=== PATIENT | male | born 1975 | race African-American/Black ===

== ENCOUNTER 2018-03-05 19:42 | Emergency (ER) | payer OTHER ==
[2018-03-05] MEDS: IPRATRPIUM/ALBUTEROL 0.5/2.5MG 3 ML NEBU. NEB (20:11)
== END 2018-03-05 20:37 | disposition home or self-care (01) ==
LOC: ER 20:37
DX: R05 Cough (principal); R09.81 Nasal congestion; R06.02 Shortness of breath; I10 Essential (primary) hypertension; J45.909 Unspecified asthma, uncomplicated
CPT/HCPCS: 94640; 99283-25; J7620

== ENCOUNTER 2018-06-23 23:00 | Emergency (ER) | payer SELFPAY, OTHER | END 2018-06-24 01:14 | disposition home or self-care (01) | LOC: ER 06-24 01:14 | DX: S16.1XXA Strain of muscle, fascia and tendon at neck level, initial encounter (principal); S39.012A Strain of muscle, fascia and tendon of lower back, initial encounter; J45.909 Unspecified asthma, uncomplicated; I10 Essential (primary) hypertension; Z90.89 Acquired absence of other organs; V49.9XXA Car occupant (driver) (passenger) injured in unspecified traffic accident, initial encounter; Y93.89 Activity, other specified; Y92.488 Other paved roadways as the place of occurrence of the external cause; Y99.8 Other external cause status | CPT/HCPCS: 72040; 99284 ==

== ENCOUNTER 2019-05-10 13:55 | Emergency (ER) | payer OTHER ==
[~2019-05-10] VITALS: Ht 182.9 cm; Wt 123.5 kg
[~2019-05-10 13:55] MED LIST: ALBU2.5V8 INH; BENZ100C PO; CETI10TA22 PO; CYCL10TA2 PO; HYDR-3164 PO
[2019-05-10] MEDS ORDERED: hydrALAZINE 20 MG/ML VIAL. IVP ONE ×2 (14:30→16:15)
[2019-05-10 14:39] LABS: BASO % 0 % (0-3); EOS # 0.2 x10^3/uL (0.0-0.7); EOS % 2 % (0-3); HEMATOCRIT 44.8 % (39.0-53.0); LYMPH # 1.1 x10^3/uL (1.0-4.8); LYMPH % 14 % (24-48); MEAN CORPUSCULAR HEMOGLOBIN 28 pg (25-35); MEAN CORPUSCULAR HGB CONC 33 g/dL (31-37); MEAN CORPUSCULAR VOLUME 83 fL (79-100); MONO # 0.6 x10^3/uL (0.0-1.1); MONO % 8 % (0-9); NEUT # 5.6 x10^3uL (1.8-7.7); NEUT % 75 % (31-73); PLATELET COUNT 164 x10^3/uL (140-400); RED BLOOD COUNT 5.41 x10^6/uL (4.30-5.70); WHITE BLOOD COUNT 7.5 x10^3/uL (4.0-11.0)
[2019-05-10 14:50] LABS: CALCIUM 8.5 mg/dL (8.5-10.1); CREATININE 1.6 mg/dL (0.7-1.3); GFR 57.4; POTASSIUM 4.3 mmol/L (3.5-5.1)
[2019-05-10 14:55] LABS: ALBUMIN 3.7 g/dL (3.4-5.0); TOTAL BILIRUBIN 0.6 mg/dL (0.2-1.0); TOTAL PROTEIN 7.4 g/dL (6.4-8.2)
--- NOTE | 2019-05-10 14:58 | RAD ---
Chest, PA and Lateral: Technique: PA and lateral views of the chest were obtained. History: Headache, elevated blood pressure. Comparison: None. Findings: The heart and pulmonary vasculature appear within normal limits. The lungs are clear. The pleural margins are clear. Impression: No acute chest process is seen. Electronically signed by: Armando Abbott MD (05/10/2019 2:55 PM) [id number]
[2019-05-10 15:13] LABS: BILIRUBIN,URINE NEGATIVE (NEG); CLARITY,URINE CLEAR; COLOR,URINE YELLOW; NITRITE,URINE NEGATIVE (NEG); PH,URINE 5.5; PROTEIN,URINE NEGATIVE (NEG-TRACE)
[2019-05-10] MEDS ORDERED: cloNIDine HCL 0.1 MG TABLET PO ONE (15:15)
[2019-05-10 15:20] LABS: BARBITURATES NEG (NEG); BENZODIAZEPINES NEG (NEG); CANNABINOIDS NEG (NEG); COCAINE NEG (NEG); METHADONE NEG (NEG); OPIATES NEG (NEG); PHENCYCLIDINE NEG (NEG)
[2019-05-10 15:21] LABS: AMPHETAMINE/METHAMPHETAMINE NEG (NEG)
--- NOTE | 2019-05-10 15:21 | EKG ---
[facility] [address] [place] [address] Test Date: 2019-05-10 Test Time: 14:24:47 Pat Name: KARI PATEL Department: Room: Gender: M [employer] Technician: : 1975 Requested By: LARON RM Order Number: [id number] Reading MD: Measurements Intervals [place] Rate: 73 P: 31 NE: 162 QRS: 29 QRSD: 84 T: -24 QT: 380 QTc: 422 Interpretive Statements SINUS RHYTHM LEFT ATRIAL ABNORMALITY ST & T ABNORMALITY, CONSIDER INFERIOR ISCHEMIA OR LEFT VENTRICULAR STRAIN ABNORMAL ECG No previous ECG available for comparison
[2019-05-10 15:31] LABS: BACTERIA,URINE 0 /HPF (0-FEW); WBC,URINE OCC /HPF (0-4)
--- NOTE | 2019-05-10 15:43 | RAD ---
CT HEAD WITHOUT CONTRAST 05/10/2019 2:28 PM Indication: Headache, hypertension Comparison: None Procedure: Multidetector CT imaging of the head was performed without the administration of contrast. Findings: There is no evidence of acute intracranial hemorrhage. There is no evidence of acute territorial infarction. Please note that CT is limited for evaluation of acute ischemia. No mass effect or midline shift is identified . The ventricles and basilar cisterns have an appropriate appearance. No abnormal extra-axial fluid collections are seen. No acute osseous changes are identified. Impression: No evidence of acute intracranial abnormality CT DOSING PQRS STATEMENT: One or more of the following individualized dose reduction techniques were utilized for this examination: 1. Automated exposure control 2. Adjustment of the mA and/or kV according to patient size 3. Use of iterative reconstruction technique Electronically signed by: Stan Penn MD (05/10/2019 3:39 PM) [id number]
--- NOTE | 2019-05-10 16:01 | PHYS DOC ---
Past Medical History Past Medical History: Asthma, Hypertension, Other Additional Past Medical Histor: headaches Past Surgical History: Appendectomy Alcohol Use: Rarely Drug Use: None Adult General Chief Complaint Chief Complaint: MULTIPLE COMPLAINTS HPI HPI Patient is a 44 year old male who presents with complaining of elevation of blood pressure. Patient states he has had history of elevation of blood pressure for one or 2 years and has prescription for medication but only takes his medication but gets occipital headache related to his high blood pressure. Patient states she had headache today and went to urgent care and had blood pressure of more than 200 and sent to ER for evaluation. Patient complaining of blurred vision and urinary frequency without chest pain, shortness of breath, focal neuro deficit, nausea vomiting, using drug or alcohol. Review of Systems Review of Systems Constitutional: Denies fever or chills [] Eyes: Denies change in visual acuity, redness, or eye pain [] HENT: Denies nasal congestion or sore throat [] Respiratory: Denies cough or shortness of breath [] Cardiovascular: No additional information not addressed in HPI [] GI: Denies abdominal pain, nausea, vomiting, bloody stools or diarrhea [] : Denies dysuria or hematuria [] Musculoskeletal: Denies back pain or joint pain [] Integument: Denies rash or skin lesions [] Neurologic: Reports headache, denies focal weakness or sensory changes [] Endocrine: Denies polyuria or polydipsia [] All other systems were reviewed and found to be within normal limits, except as documented in this note. Current Medications Current Medications Current Medications Medications (Trade) Dose Ordered Sig/Kentrell Start Time Stop Time Status Last Admin Dose Admin Clonidine HCl (Catapres) 0.2 mg 1X ONCE 05/10/19 15:15 05/10/19 15:16 DC 05/10/19 15:14 0.2 MG Hydralazine HCl (Apresoline Inj) 10 mg 1X ONCE 05/10/19 14:30 05/10/19 14:32 DC 05/10/19 14:45 10 MG Allergies Allergies Allergies Coded Allergies Type Severity Reaction Last Updated Verified No Known Drug Allergies 03/05/18 No Physical Exam Physical Exam Constitutional: Well developed, well nourished, no acute distress, non-toxic appearance. [] HENT: Normocephalic, atraumatic. Eyes: PERRLA, EOMI, conjunctiva normal, no discharge. [] Neck: Normal range of motion, no tenderness, supple, no stridor. [] Cardiovascular:Heart rate regular rhythm, no murmur [] Lungs & Thorax: Bilateral breath sounds clear to auscultation [] Abdomen: Bowel sounds normal, soft, no tenderness, no masses, no pulsatile masses. [] Skin: Warm, dry, no erythema, no rash. [] Back: No tenderness, no CVA tenderness. [] Extremities: No tenderness, no cyanosis, no clubbing, ROM intact, no edema. [] Neurologic: Alert and oriented X 3, normal motor function, normal sensory function, no focal deficits noted. [] Psychologic: Affect normal, judgement normal, mood normal. [] Current Patient Data Vital Signs Vital Signs Date Time Temp Pulse Resp B/P (MAP) Pulse Ox O2 Delivery O2 Flow Rate FiO2 05/10/19 15:23 89 16 206/100 (135) 99 Room Air 05/10/19 14:18 98.4 98.4 Lab Values Laboratory Tests Test 05/10/19 14:25 05/10/19 15:00 White Blood Count 7.5 x10^3/uL (4.0-11.0) Red Blood Count 5.41 x10^6/uL (4.30-5.70) Hemoglobin 15.0 g/dL (13.0-17.5) Hematocrit 44.8 % (39.0-53.0) Mean Corpuscular Volume 83 fL (79-100) Mean Corpuscular Hemoglobin 28 pg (25-35) Mean Corpuscular Hemoglobin Concent 33 g/dL (31-37) Red Cell Distribution Width 14.0 % (11.5-14.5) Platelet Count 164 x10^3/uL (140-400) Neutrophils (%) (Auto) 75 % (31-73) H Lymphocytes (%) (Auto) 14 % (24-48) L Monocytes (%) (Auto) 8 % (0-9) Eosinophils (%) (Auto) 2 % (0-3) Basophils (%) (Auto) 0 % (0-3) Neutrophils # (Auto) 5.6 x10^3uL (1.8-7.7) Lymphocytes # (Auto) 1.1 x10^3/uL (1.0-4.8) Monocytes # (Auto) 0.6 x10^3/uL (0.0-1.1) Eosinophils # (Auto) 0.2 x10^3/uL (0.0-0.7) Basophils # (Auto) 0.0 x10^3/uL (0.0-0.2) Sodium Level 141 mmol/L (136-145) Potassium Level 4.3 mmol/L (3.5-5.1) Chloride Level 106 mmol/L (98-107) Carbon Dioxide Level 26 mmol/L (21-32) Anion Gap 9 (6-14) Blood Urea Nitrogen 13 mg/dL (8-26) Creatinine 1.6 mg/dL (0.7-1.3) H Estimated GFR (Cockcroft-Gault) 57.4 BUN/Creatinine Ratio 8 (6-20) Glucose Level 108 mg/dL (70-99) H Calcium Level 8.5 mg/dL (8.5-10.1) Magnesium Level 2.0 mg/dL (1.8-2.4) Total Bilirubin 0.6 mg/dL (0.2-1.0) Aspartate Amino Transferase (AST) 26 U/L (15-37) Alanine Aminotransferase (ALT) 28 U/L (16-63) Alkaline Phosphatase 105 U/L (46-116) Creatine Kinase 285 U/L (39-308) Troponin I Quantitative < 0.017 ng/mL (0.000-0.055) [id number]-Gdj-[id number]-Type Natriuretic Peptide 379 pg/mL (0-124) H Total Protein 7.4 g/dL (6.4-8.2) Albumin 3.7 g/dL (3.4-5.0) Albumin/Globulin Ratio 1.0 (1.0-1.7) Urine Collection Type Unknown Urine Color Yellow Urine Clarity Clear Urine pH 5.5 Urine Specific [place] 1.020 Urine Protein Negative mg/dL (NEG-TRACE) Urine Glucose (UA) Negative mg/dL (NEG) Urine Ketones (Stick) Negative mg/dL (NEG) Urine Blood Negative (NEG) Urine Nitrite Negative (NEG) Urine Bilirubin Negative (NEG) Urine Urobilinogen Dipstick 1.0 mg/dL (0.2 mg/dL) Urine Leukocyte Esterase Negative (NEG) Urine RBC 1-2 /HPF (0-2) Urine WBC Occ /HPF (0-4) Urine Bacteria 0 /HPF (0-FEW) Urine Mucus Mod /LPF Urine Opiates Screen Neg (NEG) Urine Methadone Screen Neg (NEG) Urine Barbiturates Neg (NEG) Urine Phencyclidine Screen Neg (NEG) Urine Amphetamine/Methamphetamine Neg (NEG) Urine Benzodiazepines Screen Neg (NEG) Urine Cocaine Screen Neg (NEG) Urine Cannabinoids Screen Neg (NEG) Urine Ethyl Alcohol Neg (NEG) Laboratory Tests 05/10/19 14:25 Laboratory Tests 05/10/19 14:25 EKG EKG EKG interpreted by me. EKG at 1424 showed normal sinus rhythm at rate of 74, left atrial abnormalities, abnormal T-wave inversion in inferior leads, no acute distress and T-wave abnormalities. Radiology/Procedures Radiology/Procedures [][address] [address] IMAGING REPORT Signed PATIENT: KARI PATEL ACCOUNT: [id number] : 1975 LOCATION: ER AGE: 44 SEX: M EXAM STATUS: REG ER ORD. PHYSICIAN: LARON RM MD REASON: headache and elevation of blood pressure PROCEDURE: CHEST PA & LATERAL Chest, PA and Lateral: Technique: PA and lateral views of the chest were obtained. History: Headache, elevated blood pressure. Comparison: None. Findings: The heart and pulmonary vasculature appear within normal limits. The lungs are clear. The pleural margins are clear. Impression: No acute chest process is seen. Electronically signed by: Armando Abbott MD (05/10/2019 2:55 PM) [id number] DICTATED and SIGNED BY: ARMANDO ABBOTT MD DATE: 05/10/[address] [id number] IMAGING REPORT Signed PATIENT: KARI PATEL ACCOUNT: [id number] : 1975 LOCATION: ER AGE: 44 SEX: M EXAM STATUS: REG ER ORD. PHYSICIAN: LARON RM MD REASON: headache and elevation of blood pressure PROCEDURE: CT HEAD WO CONTRAST CT HEAD WITHOUT CONTRAST 05/10/2019 2:28 PM Indication: Headache, hypertension Comparison: None Procedure: Multidetector CT imaging of the head was performed without the administration of contrast. Findings: There is no evidence of acute intracranial hemorrhage. There is no evidence of acute territorial infarction. Please note that CT is limited for evaluation of acute ischemia. No mass effect or midline shift is identified . The ventricles and basilar cisterns have an appropriate appearance. No abnormal extra-axial fluid collections are seen. No acute osseous changes are identified. Impression: No evidence of acute intracranial abnormality CT DOSING PQRS STATEMENT: One or more of the following individualized dose reduction techniques were utilized for this examination: 1. Automated exposure control 2. Adjustment of the mA and/or kV according to patient size 3. Use of iterative reconstruction technique Electronically signed by: Stan Schultz MD (05/10/2019 3:39 PM) [id number] DICTATED and SIGNED BY: STAN SCHULTZ MD DATE: 05/10/19 1539 Course & Med Decision Making Course & Med Decision Making Pertinent Labs and Imaging studies reviewed. (See chart for details) Evaluation of patient in ER showed 44-year-old male patient with history of hypertension without taking his medication on regular basis and presented here from urgent care because of elevation of blood pressure. Patient had blood sugar of 225 with sitting change of EKG. Patient did not have chest pain or abnormal labs except for mild elevation of creatinine. Patient treated with hydralazine and clonidine and blood pressure gradually decreased. Patient had blood pressure medication at home but doesn't know the name of his medication. Patient was advised to take his medication and follow up with primary care physician on regular basis. discharge: I've spoken with the patient and/or caregivers. I've explained the patient's condition, diagnosis and treatment plan based on information available to me at this time. I've answered the patient's and/or caregivers questions and addressed any concerns. The patient and/or caregivers have a good understanding the patient's diagnosis, condition and treatment plan as can be expected at this point. Vital signs have been stabilized. The patient's condition is stable for discharge from the emergency department. The patient will pursue further outpatient evaluation with her primary care provider or other designated consulting physician as outlined in the discharge instructions. Patient and/or caregivers are agreeable to this plan of care and follow-up instructions have been explained in detail. The patient and/or caregivers have received these instructions in written format and expressed understanding of these discharge instructions. The patient and her caregivers are aware that if any significant change in condition or worsening of symptoms should prompt him to immediately return to this of the closest emergency department. If an emergent department is not readily available I would encourage him to call 911. Jarret Disclaimer Dragon Disclaimer This electronic medical record was generated, in whole or in part, using a voice recognition dictation system. Departure Departure Impression: Primary Impression: Hypertensive urgency Additional Impressions: Renal insufficiency Headache Non-compliance Disposition: HOME, SELF-CARE (@1600) Condition: IMPROVED Referrals: UNKNOWN PCP NAME (PCP) Patient Instructions: Form - Blood Pressure Record Sheet, How to Take Your Blood Pressure, [id number], Managing Your High Blood Pressure Additional Instructions: Take your blood pressure medication every day as advised Follow-up with your primary care physician in 3-5 days Return to ER if not getting better Problem Qualifiers Additional Impressions: Headache Headache type: unspecified Headache chronicity pattern: unspecified pattern Intractability: not intractable Qualified Codes: R51 - Headache LARON RM MD May 10, 2019 16:01
[2019-05-10 16:39] VITALS: BP 171/91
== END 2019-05-10 16:49 | disposition home or self-care (01) ==
LOC: ER 13:55
DX: I16.0 Hypertensive urgency (principal); R51 Headache; N28.9 Disorder of kidney and ureter, unspecified; Z91.19 Patient's noncompliance with other medical treatment and regimen; I10 Essential (primary) hypertension; J45.909 Unspecified asthma, uncomplicated; Z90.89 Acquired absence of other organs
CPT/HCPCS: 36415; 70450; 71046; 80053; 80307; 81001; 82550; 83735; 83880; 84484; 85025; 93005; 96374; 96376; 99285; J0360

== ENCOUNTER 2019-12-20 17:00 | Emergency (ER) | payer SELFPAY ==
[~2019-12-20] VITALS: Ht 182.9 cm; Wt 125.0 kg
[~2019-12-20 17:00] MED LIST changes: -CETI10TA22 PO; +CETI10TA24 PO
[2019-12-20] MEDS ORDERED: cloNIDine HCL 0.1 MG TABLET PO ONE (17:45)
[2019-12-20] MEDS ORDERED: LABETALOL 20 MG/4 ML DISP.SYRIN. IVP ONE (17:45)
[2019-12-20] MEDS ORDERED: IV NORMAL SALINE 1000ML BAG 1,000 ML IV ONE (17:45)
[2019-12-20] MEDS ORDERED: ASPIRIN 325 MG TABLET PO ONE (17:45)
[2019-12-20 18:00] LABS: BASO % 0 % (0-3); EOS # 0.1 x10^3/uL (0.0-0.7); EOS % 1 % (0-3); HEMATOCRIT 48.5 % (39.0-53.0); LYMPH # 0.8 x10^3/uL (1.0-4.8); LYMPH % 8 % (24-48); MEAN CORPUSCULAR HEMOGLOBIN 27 pg (25-35); MEAN CORPUSCULAR HGB CONC 33 g/dL (31-37); MEAN CORPUSCULAR VOLUME 83 fL (79-100); MONO # 0.6 x10^3/uL (0.0-1.1); MONO % 6 % (0-9); NEUT # 8.4 x10^3/uL (1.8-7.7); NEUT % 85 % (31-73); PLATELET COUNT 164 x10^3/uL (140-400); RED BLOOD COUNT 5.86 x10^6/uL (4.30-5.70); RED CELL DISTRIBUTION WIDTH 13.9 % (11.5-14.5); WHITE BLOOD COUNT 9.9 x10^3/uL (4.0-11.0)
[2019-12-20 18:11] LABS: CREATININE 1.6 mg/dL (0.7-1.3); GFR 57.4; POTASSIUM 3.8 mmol/L (3.5-5.1)
[2019-12-20 18:17] LABS: ALBUMIN 4.2 g/dL (3.4-5.0); ALBUMIN/GLOBULIN RATIO 1.1 (1.0-1.7); MAGNESIUM 1.9 mg/dL (1.8-2.4); TOTAL BILIRUBIN 0.8 mg/dL (0.2-1.0); TOTAL PROTEIN 8.1 g/dL (6.4-8.2)
--- NOTE | 2019-12-20 18:36 | RAD ---
CT scan of the head without contrast 12/20/2019 Clinical History: Numbness. Hypertension. Technique: Unenhanced, contiguous, 5 mm axial sections were obtained through the head. One or more of the following individualized dose reduction techniques were utilized for this study: 1. Automated exposure control. 2. Adjustment of the mA and/or kV according to patient size. 3. Use of iterative reconstruction technique. Findings: The ventricles and sulci are within normal limits in size and configuration. No focal area of abnormal attenuation is seen involving the brain parenchyma. No extra-axial fluid collection is seen. No skull fracture is seen. Impression: Negative study. Electronically signed by: Bk Razo MD (12/20/2019 6:33 PM) [id number]
[2019-12-20 19:13] LABS: BILIRUBIN,URINE NEGATIVE (NEG); CLARITY,URINE CLEAR; COLOR,URINE YELLOW; NITRITE,URINE NEGATIVE (NEG); PROTEIN,URINE NEGATIVE (NEG-TRACE)
[2019-12-20 19:21] LABS: AMPHETAMINE/METHAMPHETAMINE NEG (NEG); BARBITURATES NEG (NEG); BENZODIAZEPINES NEG (NEG); CANNABINOIDS NEG (NEG); COCAINE NEG (NEG); METHADONE NEG (NEG); OPIATES NEG (NEG); PHENCYCLIDINE NEG (NEG)
[2019-12-20 19:24] LABS: BACTERIA,URINE 0 /HPF (0-FEW); RBC,URINE OCC /HPF (0-2); SQUAMOUS EPITHELIAL CELL,UR OCC /LPF; WBC,URINE 0 /HPF (0-4)
[2019-12-20] MEDS ORDERED: hydrALAZINE 20 MG/ML VIAL. IVP ONE (20:00)
--- NOTE | 2019-12-20 20:22 | RAD ---
EXAM: AP View of the chest DATE: 12/20/2019 5:42 PM INDICATION: HTN, numbness COMPARISON: 05/10/2019 FINDINGS: The heart is not enlarged. Mediastinal and hilar contours are normal. No focal parenchymal airspace opacity. No pleural effusion or pneumothorax. IMPRESSION: 1. No radiographic evidence for acute cardiopulmonary process. Electronically signed by: Robert Parks MD (12/20/2019 8:19 PM) [id number]
--- NOTE | 2019-12-20 21:43 | PHYS DOC ---
Past Medical History Past Medical History: Asthma, Hypertension, Other Additional Past Medical Histor: headaches (JOHN CESPEDES APRN) Past Surgical History: Appendectomy (JOHN CESPEDES APRN) Smoking Status: Never Smoker Alcohol Use: Rarely Drug Use: None (JOHN CESPEDES APRN) Attending Signature I have participated in the care of this patient and I have reviewed and agree with all pertinent clinical information above including history, exam, and recommendations. (CLIFF WORRELL MD) Adult General Chief Complaint Chief Complaint: HEADACHE HPI HPI Patient is a 44 year old male patient with history of hypertension mostly uncontrolled,and asthma who presents to the ED today complaining of a 7 out of 10 posterior head pain, symptoms have been going on for one week. Patient denies any chest pain, shortness of breath. He reports he is supposed to be on lisinopril/HCTZ which he did not take for one week. He reports before coming to the ED his blood pressure was 200/113. He reports he felt his right hand was numb and his left leg was numb too when he noted his blood pressure was high. 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 He reports he has not seen his PCP for a while because his insurance changed. He states he got the prescription for his blood pressure medicine yesterday and took today's dose. (JOHN CESPEDES APRN) Review of Systems Review of Systems Constitutional: Denies fever or chills [] Eyes: Denies change in visual acuity, redness, or eye pain [] HENT: Denies nasal congestion or sore throat [] Respiratory: Denies cough or shortness of breath [] Cardiovascular: Reports HTN. No additional information not addressed in HPI [] GI: Denies abdominal pain, nausea, vomiting, bloody stools or diarrhea [] : Denies dysuria or hematuria [] Musculoskeletal: Denies back pain or joint pain [] Integument: Denies rash or skin lesions [] Neurologic: reports posterior headache, right hand numbness and left leg numb ness denies focal weakness or sensory changes [] All other systems were reviewed and found to be within normal limits, except as documented in this note. (JOHN CESPEDES APRN) Current Medications Current Medications Current Medications Medications (Trade) Dose Ordered Sig/Kentrell Start Time Stop Time Status Last Admin Dose Admin Aspirin (Jose Eduardo Aspirin) 325 mg 1X ONCE 2/6/20 17:45 12/20/19 17:47 DC 12/20/19 18:20 325 MG Clonidine HCl (Catapres) 0.1 mg 1X ONCE 12/20/19 17:45 12/20/19 17:47 DC 12/20/19 18:20 0.1 MG Hydralazine HCl (Apresoline Inj) 10 mg 1X ONCE 12/20/19 20:00 12/20/19 20:01 DC 12/20/19 19:55 10 MG Labetalol HCl (Normodyne Iv Push) 10 mg 1X ONCE 12/20/19 17:45 12/20/19 17:47 DC 12/20/19 18:20 10 MG Sodium Chloride 1,000 ml @ 1,000 mls/hr 1X ONCE 12/20/19 17:45 12/20/19 18:44 DC 12/20/19 18:19 1,000 MLS/HR (CLIFF WORRELL MD) Allergies Allergies Allergies Coded Allergies Type Severity Reaction Last Updated Verified No Known Drug Allergies 03/05/18 No (CLIFF WORRELL MD) Physical Exam Physical Exam Constitutional: Well developed, well nourished, no acute distress, non-toxic appearance. [] HENT: Normocephalic, atraumatic, bilateral external ears normal, oropharynx moist, no oral exudates, nose normal. [] Eyes: PERRLA, EOMI, conjunctiva normal, no discharge. [] Neck: Normal range of motion, no tenderness, supple, no stridor. [] Cardiovascular:Heart rate regular rhythm, no murmur [] Lungs & Thorax: Bilateral breath sounds clear to auscultation [] Abdomen: Bowel sounds normal, soft, no tenderness, no masses, no pulsatile masses. [] Skin: Warm, dry, no erythema, no rash. [] Back: No tenderness, no CVA tenderness. [] Extremities: No tenderness, no cyanosis, no clubbing, ROM intact, no edema. [] Neurologic: Alert and oriented X 3, normal motor function, normal sensory function, no focal deficits noted. Cranial nerves II-XII intact. Psychologic: Affect normal, judgement normal, mood normal. [] (JOHN CESPEDES APRN) Current Patient Data Vital Signs Vital Signs Date Time Temp Pulse Resp B/P (MAP) Pulse Ox O2 Delivery O2 Flow Rate FiO2 12/20/19 21:54 76 18 98 12/20/19 19:55 202/116 12/20/19 17:10 98.2 98.2 (CLIFF WORRELL MD) Lab Values Laboratory Tests Test 12/20/19 17:20 12/20/19 19:03 White Blood Count 9.9 x10^3/uL (4.0-11.0) Red Blood Count 5.86 x10^6/uL (4.30-5.70) H Hemoglobin 16.0 g/dL (13.0-17.5) Hematocrit 48.5 % (39.0-53.0) Mean Corpuscular Volume 83 fL (79-100) Mean Corpuscular Hemoglobin 27 pg (25-35) Mean Corpuscular Hemoglobin Concent 33 g/dL (31-37) Red Cell Distribution Width 13.9 % (11.5-14.5) Platelet Count 164 x10^3/uL (140-400) Neutrophils (%) (Auto) 85 % (31-73) H Lymphocytes (%) (Auto) 8 % (24-48) L Monocytes (%) (Auto) 6 % (0-9) Eosinophils (%) (Auto) 1 % (0-3) Basophils (%) (Auto) 0 % (0-3) Neutrophils # (Auto) 8.4 x10^3/uL (1.8-7.7) H Lymphocytes # (Auto) 0.8 x10^3/uL (1.0-4.8) L Monocytes # (Auto) 0.6 x10^3/uL (0.0-1.1) Eosinophils # (Auto) 0.1 x10^3/uL (0.0-0.7) Basophils # (Auto) 0.0 x10^3/uL (0.0-0.2) Sodium Level 141 mmol/L (136-145) Potassium Level 3.8 mmol/L (3.5-5.1) Chloride Level 101 mmol/L (98-107) Carbon Dioxide Level 29 mmol/L (21-32) Anion Gap 11 (6-14) Blood Urea Nitrogen 11 mg/dL (8-26) Creatinine 1.6 mg/dL (0.7-1.3) H Estimated GFR (Cockcroft-Gault) 57.4 BUN/Creatinine Ratio 7 (6-20) Glucose Level 102 mg/dL (70-99) H Calcium Level 9.0 mg/dL (8.5-10.1) Magnesium Level 1.9 mg/dL (1.8-2.4) Total Bilirubin 0.8 mg/dL (0.2-1.0) Aspartate Amino Transferase (AST) 31 U/L (15-37) Alanine Aminotransferase (ALT) 35 U/L (16-63) Alkaline Phosphatase 114 U/L (46-116) Creatine Kinase 279 U/L (39-308) Creatine Kinase MB (Mass) 2.2 ng/mL (0.0-3.6) Creatine Kinase MB Relative Index 0.8 % (0-4) Troponin I Quantitative < 0.017 ng/mL (0.000-0.055) SD-Syx-E-Type Natriuretic Peptide 591 pg/mL (0-124) H Total Protein 8.1 g/dL (6.4-8.2) Albumin 4.2 g/dL (3.4-5.0) Albumin/Globulin Ratio 1.1 (1.0-1.7) Thyroid Stimulating Hormone (TSH) 0.702 uIU/mL (0.358-3.74) Urine Collection Type Unknown Urine Color Yellow Urine Clarity Clear Urine pH 6.0 Urine Specific [place] 1.010 Urine Protein Negative mg/dL (NEG-TRACE) Urine Glucose (UA) Negative mg/dL (NEG) Urine Ketones (Stick) Negative mg/dL (NEG) Urine Blood Negative (NEG) Urine Nitrite Negative (NEG) Urine Bilirubin Negative (NEG) Urine Urobilinogen Dipstick 1.0 mg/dL (0.2 mg/dL) Urine Leukocyte Esterase Negative (NEG) Urine RBC Occ /HPF (0-2) Urine WBC 0 /HPF (0-4) Urine Squamous Epithelial Cells Occ /LPF Urine Bacteria 0 /HPF (0-FEW) Urine Opiates Screen Neg (NEG) Urine Methadone Screen Neg (NEG) Urine Barbiturates Neg (NEG) Urine Phencyclidine Screen Neg (NEG) Urine Amphetamine/Methamphetamine Neg (NEG) Urine Benzodiazepines Screen Neg (NEG) Urine Cocaine Screen Neg (NEG) Urine Cannabinoids Screen Neg (NEG) Urine Ethyl Alcohol Neg (NEG) Laboratory Tests 12/20/19 17:20 Laboratory Tests 12/20/19 17:20 (CLIFF WORRELL MD) EKG EKG [] (JOHN CESPEDES APRN) Radiology/Procedures Radiology/Procedures []PROCEDURE: PORTABLE CHEST 1V EXAM: AP View of the chest DATE: 12/20/2019 5:42 PM INDICATION: HTN, numbness COMPARISON: 05/10/2019 FINDINGS: The heart is not enlarged. Mediastinal and hilar contours are normal. No focal parenchymal airspace opacity. No pleural effusion or pneumothorax. IMPRESSION: 1. No radiographic evidence for acute cardiopulmonary process. Electronically signed by: Robert Garza MD (12/20/2019 8:19 PM) [id number] DICTATED and SIGNED BY: ROBERT GARZA MD DATE: 12/20/192018 PROCEDURE: CT HEAD WO CONTRAST CT scan of the head without contrast 12/20/2019 Clinical History: Numbness. Hypertension. Technique: Unenhanced, contiguous, 5 mm axial sections were obtained through the head. One or more of the following individualized dose reduction techniques were utilized for this study: 1. Automated exposure control. 2. Adjustment of the mA and/or kV according to patient size. 3. Use of iterative reconstruction technique. Findings: The ventricles and sulci are within normal limits in size and configuration. No focal area of abnormal attenuation is seen involving the brain parenchyma. No extra-axial fluid collection is seen. No skull fracture is seen. Impression: Negative study. Electronically signed by: Bk Razo MD (12/20/2019 6:33 PM) [id number] DICTATED and SIGNED BY: BK RAZO MD DATE: 12/20/19 183 (JOHN CESPEDES APRN) Course & Med Decision Making Course & Med Decision Making Pertinent Labs and Imaging studies reviewed. (See chart for details) This is a 44-year-old male patient presenting to the ED today complaining of headache, elevated blood pressure, numbness to the right hand and left leg. Headache has been going on for week, patient has not been taking his blood pressure medicine for one week. He ran out of the medications though he states has not seen his PCP for a while. EKG was negative, chest x-ray is negative, CT of the head is negative, stroke scale is negative. CMP with creatinine of 1.6 BUN, Creatinine around his baseline. Blood pressure notable to the ED 209/128on arrival to the ED, patient was given labetalol, clonidine then later hydralazine, blood pressure finally came down to 160/100. Headache has resolved. He has no numbness. This patient is noncompliant with his blood pressure regimen. Neither does he follow up with the PCP. He couldn't even remember the name of his own doctor. I talked to patient and significant other at length about compliance with high blood pressure treatment. I requested he contacts his PCP tomorrow and starts following up. He states he has hydrochlorothiazide and lisinopril at home. Reminded patient the importance of taking this medications daily as prescribed. We talked about lifestyle changes especially weight loss, diet and exercise. (JOHN CESPEDES APRN) Dragon Disclaimer Dragon Disclaimer This electronic medical record was generated, in whole or in part, using a voice recognition dictation system. (JOHN CESPEDES APRN) NIHSS Stroke Scale NIH Stroke Scale: NIH Stroke Scale Response (Comments) Value Level of Consciousness: 0 Alert/Responsive 0 LOC Questions: 0 Answers both correctly 0 Best Gaze: 0 Normal 0 Visual: 0 No visual loss 0 Facial Palsy: 0 Normal, symmetrical 0 Motor - Left Arm 0 No drift 0 Motor - Right Arm 0 No drift 0 Motor - Left Leg 0 No drift 0 Motor: Right Leg 0 No drift 0 Limb Ataxia: 0 Absent 0 Sensory: 0 No loss 0 Best Language: 0 Normal 0 Dysathria: 0 Normal 0 Extinction and Inattention: 0 Normal 0 Total 0 Departure Departure Impression: Primary Impression: HTN (hypertension) Additional Impressions: Chronic renal insufficiency Headache Stress Disposition: HOME, SELF-CARE Condition: STABLE Referrals: UNKNOWN PCP NAME (PCP) follow up with your doctor in 1-2 days Patient Instructions: Hypertension Additional Instructions: You have high blood pressure. Please ensure you are taking your medicines and follow up with your doctor as soon as you can. Problem Qualifiers Primary Impression: HTN (hypertension) Hypertension type: unspecified Qualified Codes: I10 - Essential (primary) hypertension Additional Impressions: Chronic renal insufficiency Chronic kidney disease stage: unspecified stage Qualified Codes: N18.9 - Chronic kidney disease, unspecified Headache Headache type: unspecified Headache chronicity pattern: acute headache Intractability: not intractable Qualified Codes: R51 - Headache JOHN CESPEDES APRN Dec 20, 2019 21:43 CLIFF WORRELL MD Dec 21, 2019 02:57
[2019-12-20 21:54] VITALS: BP 164/102
--- NOTE | 2019-12-21 06:00 | EKG ---
[facility] [address] [place] [address] Test Date: 2019-12-20 Test Time: 17:18:49 Pat Name: KARI PATEL Department: Room: Gender: M Delivery Rn: : 1975 Requested By: JOHN CESPEDES Order Number: [id number] Reading MD: Measurements Intervals [place] Rate: 85 P: 35 W[place]: 126 QRS: 28 QRSD: 86 T: -18 QT: 366 QTc: 441 Interpretive Statements SINUS RHYTHM LEFT ATRIAL ABNORMALITY QRS(T) CONTOUR ABNORMALITY CONSIDER ANTEROLATERAL MYOCARDIAL DAMAGE T ABNORMALITY IN INFERIOR LEADS ABNORMAL ECG RI6.01 No previous ECG available for comparison
== END 2019-12-20 22:16 | disposition home or self-care (01) ==
LOC: ER 17:00
DX: I10 Essential (primary) hypertension (principal); I12.9 Hypertensive chronic kidney disease with stage 1 through stage 4 chronic kidney disease, or unspecified chronic kidney disease; N18.9 Chronic kidney disease, unspecified; R51 Headache; F43.9 Reaction to severe stress, unspecified; J45.909 Unspecified asthma, uncomplicated; Z90.89 Acquired absence of other organs; Z79.82 Long term (current) use of aspirin
CPT/HCPCS: 36415; 70450; 71045; 80053; 80307; 81001; 82553; 83735; 83880; 84443; 84484; 85025; 93005; 96374; 96375; 99285; J0360; J3490; J7030

== ENCOUNTER 2019-12-25 08:09 | Emergency (ER) | payer SELFPAY ==
[~2019-12-25] VITALS: Ht 182.9 cm; Wt 123.0 kg
--- NOTE | 2019-12-25 09:46 | EKG ---
[facility] [address] [place] [address] Test Date: 2019-12-25 Test Time: 08:57:20 Pat Name: KARI PATEL Department: Room: Gender: M Pharmacy Tech: : 1975 Requested By: LARON RM Order Number: [id number] Reading MD: Measurements Intervals [place] Rate: 67 P: 40 NE: 134 QRS: 28 QRSD: 92 T: -35 QT: 438 QTc: 466 Interpretive Statements SINUS RHYTHM LEFT ATRIAL ABNORMALITY T ABNORMALITY IN ANTERIOR LEADS INFEROLATERAL LEADS ABNORMAL ECG RI6.01 No previous ECG available for comparison
--- NOTE | 2019-12-25 09:55 | RAD ---
Examination: CT HEAD WO CONTRAST History: Dizziness Comparison/Correlation: 05/10/2019 CT head without contrast, 12/20/2019 CT head without contrast Findings: Axial images were obtained without contrast. Ventricles are normal size. No intracranial hemorrhage, shift, or mass effect. Anterior limb of the right internal capsule has low attenuation similar to the prior exams. This may represent an old lacunar infarct. Bony structures unremarkable. Orbits are unremarkable. Impression: No suspicious process. PQRS Compliance Statement: One or more of the following individualized dose reduction techniques were utilized for this examination: 1. Automated exposure control 2. Adjustment of the mA and/or kV according to patient size 3. Use of iterative reconstruction technique Electronically signed by: Tolu Sung MD (12/25/2019 9:52 AM) [id number]
--- NOTE | 2019-12-25 09:58 | RAD ---
Examination: PORTABLE CHEST 1V History: Dizziness Comparison/Correlation: 12/20/2023 Portable Chest X-ray Exam Findings: Portable upright frontal view chest was obtained. Heart size is borderline but this is probably technique related. No infiltrate or pleural effusion. No pneumothorax. Bony structures unremarkable. Impression: No acute process. Electronically signed by: Tolu Sung MD (12/25/2019 9:55 AM) [id number]
[2019-12-25 10:05] LABS: CALCIUM 8.7 mg/dL (8.5-10.1); CREATININE 1.5 mg/dL (0.7-1.3); GFR 61.8
[2019-12-25] MEDS: MECLIZINE HCL 12.5 MG TABLET. PO ONE (10:08)
[2019-12-25 10:12] LABS: ALBUMIN 3.8 g/dL (3.4-5.0); ALBUMIN/GLOBULIN RATIO 1.1 (1.0-1.7); MAGNESIUM 2.1 mg/dL (1.8-2.4); TOTAL BILIRUBIN 0.6 mg/dL (0.2-1.0); TOTAL PROTEIN 7.2 g/dL (6.4-8.2)
[2019-12-25 10:14] LABS: BASO % 0 % (0-3); EOS # 0.1 x10^3/uL (0.0-0.7); EOS % 1 % (0-3); HEMATOCRIT 45.4 % (39.0-53.0); HEMOGLOBIN 14.8 g/dL (13.0-17.5); LYMPH # 0.7 x10^3/uL (1.0-4.8); LYMPH % 8 % (24-48); MEAN CORPUSCULAR HEMOGLOBIN 27 pg (25-35); MEAN CORPUSCULAR HGB CONC 33 g/dL (31-37); MEAN CORPUSCULAR VOLUME 83 fL (79-100); MONO # 0.6 x10^3/uL (0.0-1.1); MONO % 6 % (0-9); NEUT % 84 % (31-73); PLATELET COUNT 147 x10^3/uL (140-400); RED BLOOD COUNT 5.44 x10^6/uL (4.30-5.70); RED CELL DISTRIBUTION WIDTH 13.7 % (11.5-14.5); WHITE BLOOD COUNT 9.5 x10^3/uL (4.0-11.0)
[2019-12-25 10:29] LABS: PROTHROMBIN TIME PATIENT 14.5 SEC (11.7-14.0)
--- NOTE | 2019-12-25 10:36 | PHYS DOC ---
Past Medical History Past Medical History: Asthma, Hypertension, Other Additional Past Medical Histor: headaches Past Surgical History: Appendectomy Smoking Status: Never Smoker Alcohol Use: Rarely Drug Use: None Adult General Chief Complaint Chief Complaint: DIZZY/LIGHT HEADED HPI HPI Patient is a 44 year old male with history of hypertension and asthma and headache who presents with headache of dizziness. Patient states he had episodes of positional dizziness since this morning associated with left hand numbness and substernal headache and rated his pain 5/10. Patient states he had 4 episodes of vomiting. Patient denies ataxia, chest pain, shortness of breath, fever and chills, focal weakness, history of the same problem. Patient has history of hypertension and denies missing his medication. Patient complaining of lower abdominal discomfort feeling for the last couple days and thinks maybe he has UTI. Patient denies constipation and diarrhea, hematuria. Review of Systems Review of Systems Constitutional: Denies fever or chills [] Eyes: Denies change in visual acuity, redness, or eye pain [] HENT: Denies nasal congestion or sore throat [] Respiratory: Denies cough or shortness of breath [] Cardiovascular: No additional information not addressed in HPI [] GI: Reports abdominal pain, nausea, vomiting, denies bloody stools or diarrhea [] : Denies dysuria or hematuria [] Musculoskeletal: Denies back pain or joint pain [] Integument: Denies rash or skin lesions [] Neurologic: Reports headache, sensory changes, denies focal weakness [] Endocrine: Denies polyuria or polydipsia [] All other systems were reviewed and found to be within normal limits, except as documented in this note. Current Medications Current Medications Current Medications Medications (Trade) Dose Ordered Sig/Kentrell Start Time Stop Time Status Last Admin Dose Admin Meclizine HCl (Antivert) 25 mg 1X ONCE 12/25/19 09:45 12/25/19 09:46 DC 12/25/19 10:08 25 MG Allergies Allergies Allergies Coded Allergies Type Severity Reaction Last Updated Verified No Known Drug Allergies 03/05/18 No Physical Exam Physical Exam Constitutional: Well developed, well nourished, no acute distress, non-toxic appearance. [] HENT: Normocephalic, atraumatic, bilateral external ears normal, oropharynx moist, no oral exudates, nose normal. [] Eyes: PERRLA, EOMI, conjunctiva normal, no discharge. [] Neck: Normal range of motion, no tenderness, supple, no stridor. [] Cardiovascular:Heart rate regular rhythm, no murmur [] Lungs & Thorax: Bilateral breath sounds clear to auscultation [] Abdomen: Bowel sounds normal, soft, no tenderness, no masses, no pulsatile masses. [] Skin: Warm, dry, no erythema, no rash. [] Back: No tenderness, no CVA tenderness. [] Extremities: No tenderness, no cyanosis, no clubbing, ROM intact, no edema. [] Neurologic: Alert and oriented X 3, normal motor function, normal sensory function, no focal deficits noted. [] Psychologic: Affect normal, judgement normal, mood normal. [] Current Patient Data Vital Signs Vital Signs Date Time Temp Pulse Resp B/P (MAP) Pulse Ox O2 Delivery O2 Flow Rate FiO2 12/25/19 13:00 76 18 97 12/25/19 08:27 98.2 175/106 (129) Room Air 98.2 Lab Values Laboratory Tests Test 12/25/19 09:10 12/25/19 11:00 White Blood Count 9.5 x10^3/uL (4.0-11.0) Red Blood Count 5.44 x10^6/uL (4.30-5.70) Hemoglobin 14.8 g/dL (13.0-17.5) Hematocrit 45.4 % (39.0-53.0) Mean Corpuscular Volume 83 fL (79-100) Mean Corpuscular Hemoglobin 27 pg (25-35) Mean Corpuscular Hemoglobin Concent 33 g/dL (31-37) Red Cell Distribution Width 13.7 % (11.5-14.5) Platelet Count 147 x10^3/uL (140-400) Neutrophils (%) (Auto) 84 % (31-73) H Lymphocytes (%) (Auto) 8 % (24-48) L Monocytes (%) (Auto) 6 % (0-9) Eosinophils (%) (Auto) 1 % (0-3) Basophils (%) (Auto) 0 % (0-3) Neutrophils # (Auto) 8.0 x10^3/uL (1.8-7.7) H Lymphocytes # (Auto) 0.7 x10^3/uL (1.0-4.8) L Monocytes # (Auto) 0.6 x10^3/uL (0.0-1.1) Eosinophils # (Auto) 0.1 x10^3/uL (0.0-0.7) Basophils # (Auto) 0.0 x10^3/uL (0.0-0.2) Prothrombin Time 14.5 SEC (11.7-14.0) H Prothrombin Time INR 1.2 (0.8-1.1) H Sodium Level 140 mmol/L (136-145) Potassium Level 4.0 mmol/L (3.5-5.1) Chloride Level 103 mmol/L (98-107) Carbon Dioxide Level 28 mmol/L (21-32) Anion Gap 9 (6-14) Blood Urea Nitrogen 15 mg/dL (8-26) Creatinine 1.5 mg/dL (0.7-1.3) H Estimated GFR (Cockcroft-Gault) 61.8 BUN/Creatinine Ratio 10 (6-20) Glucose Level 94 mg/dL (70-99) Calcium Level 8.7 mg/dL (8.5-10.1) Magnesium Level 2.1 mg/dL (1.8-2.4) Total Bilirubin 0.6 mg/dL (0.2-1.0) Aspartate Amino Transferase (AST) 26 U/L (15-37) Alanine Aminotransferase (ALT) 26 U/L (16-63) Alkaline Phosphatase 100 U/L (46-116) Creatine Kinase 250 U/L (39-308) Troponin I Quantitative < 0.017 ng/mL (0.000-0.055) VI-Svn-L-Type Natriuretic Peptide 238 pg/mL (0-124) H Total Protein 7.2 g/dL (6.4-8.2) Albumin 3.8 g/dL (3.4-5.0) Albumin/Globulin Ratio 1.1 (1.0-1.7) Lipase 102 U/L (73-393) Urine Collection Type Unknown Urine Color Yellow Urine Clarity Clear Urine pH 7.0 Urine Specific Baker 1.015 Urine Protein 30 mg/dL (NEG-TRACE) Urine Glucose (UA) Negative mg/dL (NEG) Urine Ketones (Stick) Negative mg/dL (NEG) Urine Blood Negative (NEG) Urine Nitrite Negative (NEG) Urine Bilirubin Negative (NEG) Urine Urobilinogen Dipstick 1.0 mg/dL (0.2 mg/dL) Urine Leukocyte Esterase Negative (NEG) Urine RBC Occ /HPF (0-2) Urine WBC Occ /HPF (0-4) Urine Squamous Epithelial Cells Occ /LPF Urine Bacteria 0 /HPF (0-FEW) Urine Mucus Slight /LPF Laboratory Tests 12/25/19 09:10 Laboratory Tests 12/25/19 09:10 EKG EKG EKG interpreted by me. EKG at 08 57 showed normal sinus rhythm at rate of 67, left atrial abnormality, T-wave abnormality anterior leads, no acute T-wave elevation. Radiology/Procedures Radiology/[place] [address] IMAGING REPORT Signed PATIENT: KARI PATEL: [id number] : 1975 LOCATION: ER AGE: 44 SEX: M EXAM STATUS: REG ER ORD. PHYSICIAN: LARON RM MD REASON: dizziness PROCEDURE: PORTABLE CHEST 1V Examination: PORTABLE CHEST 1V History: Dizziness Comparison/Correlation: 12/20/2023 Portable Chest X-ray Exam Findings: Portable upright frontal view chest was obtained. Heart size is borderline but this is probably technique related. No infiltrate or pleural effusion. No pneumothorax. Bony structures unremarkable. Impression: No acute process. Electronically signed by: Tolu Miranda MD (12/25/2019 9:55 AM) [id number] DICTATED and SIGNED BY: TOLU MIRANDA MD DATE: 12/25/[address] [address] IMAGING REPORT Signed PATIENT: KARI PATEL: [id number] : 1975 LOCATION: ER AGE: 44 SEX: M EXAM STATUS: REG ER ORD. PHYSICIAN: LARON RM MD REASON: dizziness PROCEDURE: CT HEAD WO CONTRAST Examination: CT HEAD WO CONTRAST History: Dizziness Comparison/Correlation: 05/10/2019 CT head without contrast, 12/20/2019 CT head without contrast Findings: Axial images were obtained without contrast. Ventricles are normal size. No intracranial hemorrhage, shift, or mass effect. Anterior limb of the right internal capsule has low attenuation similar to the prior exams. This may represent an old lacunar infarct. Bony structures unremarkable. Orbits are unremarkable. Impression: No suspicious process. PQRS Compliance Statement: One or more of the following individualized dose reduction techniques were utilized for this examination: 1. Automated exposure control 2. Adjustment of the mA and/or kV according to patient size 3. Use of iterative reconstruction technique Electronically signed by: Tolu Miranda MD (12/25/2019 9:52 AM) [id number] DICTATED and SIGNED BY: TOLU MIRANDA MD DATE: 12/25/19 0952 Course & Med Decision Making Course & Med Decision Making Pertinent Labs and Imaging studies reviewed. (See chart for details) discharge: I've spoken with the patient and/or caregivers. I've explained the patient's condition, diagnosis and treatment plan based on information available to me at this time. I've answered the patient's and/or caregivers questions and addressed any concerns. The patient and/or caregivers have a good understanding the patient's diagnosis, condition and treatment plan as can be expected at this point. Vital signs have been stabilized. The patient's condition is stable for discharge from the emergency department. The patient will pursue further outpatient evaluation with her primary care provider or other designated consulting physician as outlined in the discharge instructions. Patient and/or caregivers are agreeable to this plan of care and follow-up instructions have been explained in detail. The patient and/or ca regivers have received these instructions in written format and expressed understanding of these discharge instructions. The patient and her caregivers are aware that if any significant change in condition or worsening of symptoms should prompt him to immediately return to this of the closest emergency department. If an emergent department is not readily available I would encourage him to call 911. Sajanon Disclaimer Dragon Disclaimer This electronic medical record was generated, in whole or in part, using a voice recognition dictation system. Departure Departure Impression: Primary Impression: Accelerated hypertension Additional Impressions: Dizziness Abdominal pain Chronic renal insufficiency Headache Disposition: HOME, SELF-CARE (at 1245) Condition: IMPROVED Referrals: FERMÍN CASTRO MD (PCP) Patient Instructions: Dizziness, Form - Blood Pressure Record Sheet, How to Take Your Blood Pressure, Fozc-if-Gsta, Managing Your High Blood Pressure Additional Instructions: Continue current medication Follow-up with your primary care physician in 3-5 days Return to ER if not getting better Scripts Meclizine Hcl (MECLIZINE HCL) 25 Mg Tablet 1 TAB PO TID for dizziness, #20 TAB Prov: LARON RM MD 12/25/19 Problem Qualifiers Additional Impressions: Abdominal pain Abdominal location: unspecified location Qualified Codes: R10.9 - Unspecified abdominal pain Chronic renal insufficiency Chronic kidney disease stage: unspecified stage Qualified Codes: N18.9 - Chronic kidney disease, unspecified Headache Headache type: unspecified Headache chronicity pattern: unspecified pattern Intractability: not intractable Qualified Codes: R51 - Headache LARON RM MD Dec 25, 2019 10:36
[2019-12-25 11:46] LABS: BILIRUBIN,URINE NEGATIVE (NEG); CLARITY,URINE CLEAR; COLOR,URINE YELLOW; NITRITE,URINE NEGATIVE (NEG); PROTEIN,URINE 30 mg/dL (NEG-TRACE)
[2019-12-25 12:06] LABS: BACTERIA,URINE 0 /HPF (0-FEW); RBC,URINE OCC /HPF (0-2); SQUAMOUS EPITHELIAL CELL,UR OCC /LPF; WBC,URINE OCC /HPF (0-4)
[2019-12-25] MEDS ORDERED: MECL-75 PO (12:51)
[2019-12-25 13:00] VITALS: BP 162/110
== END 2019-12-25 13:02 | disposition home or self-care (01) ==
LOC: ER 08:09
DX: I10 Essential (primary) hypertension (principal); N18.9 Chronic kidney disease, unspecified; R42 Dizziness and giddiness; R11.2 Nausea with vomiting, unspecified; R10.30 Lower abdominal pain, unspecified; R51 Headache; J45.909 Unspecified asthma, uncomplicated; Z90.89 Acquired absence of other organs
CPT/HCPCS: 36415; 70450; 71045; 80053; 81001; 82550; 83690; 83735; 83880; 84484; 85025; 85610; 93005; 99285; J8597